=== PATIENT | male | born 1945 | race Caucasian/White ===

== ENCOUNTER 2024-12-04 00:18 | Inpatient (IN) | payer BC, OTHER ==
[2024-12-04 00:28] VITALS: BMI 28.5
[2024-12-04] MEDS ORDERED: SODIUM CHLORIDE 1,000 ML with POTASSIUM CHLORIDE 10 MEQ IV SCH (00:30)
[2024-12-04 01:20] LABS: MCHC 33.7 g/dl (32.3-36.5); MEAN CELL VOLUME 90.5 fl (79.0-92.2); MEAN PLT VOLUME 9.5 fl (9.4-12.4); RDW 12.9 % (12.2-16.6)
[2024-12-04 01:29] LABS: INR 1.47 (0.83-1.09); PROTHROMBIN TIME (PATIENT) 16.2 SEC (9.7-13.0)
[2024-12-04 01:32] LABS: ACTIVATED PTT 27.2 SECONDS (25.2-36.5)
[2024-12-04 01:37] LABS: GLUCOSE,RANDOM 152 mg/dL (74-106)
[2024-12-04] MEDS ORDERED: ACETAMINOPHEN INJECTION 100 ML ONE (01:37)
[2024-12-04 01:38] LABS: TOT PROT 6.8 g/dl (6.4-8.2)
[2024-12-04 01:39] LABS: CO2 28 mmol/L (21-32)
[2024-12-04 01:40] LABS: ALK PHOS 71 U/L (40-150)
[2024-12-04 01:43] LABS: CREATININE 0.98 mg/dL (0.55-1.3); SGOT/AST 74 U/L (5-34); SGPT/ALT 78 U/L (0-55)
[2024-12-04] MEDS: ACETAMINOPHEN 1000 MG/100 ML BAG IVPB ONE (01:43)
[2024-12-04] MEDS: LACTATED RINGERS SOLUTION 1000 ML INFUS.BAG IV ONE (01:43)
[2024-12-04] MEDS ORDERED: MAGNESIUM SULFATE IN WATER 2 GM/50 ML IVPB IVPB ONE (01:51)
[2024-12-04 02:04] LABS: HCV DIAGNOSTIC IN-HOUSE W/RFLX NON-REACTIVE (NONREACTIVE); HIV INTERPRETATION NEGATIVE (NEGATIVE)
[2024-12-04] MEDS: MAGNESIUM SULF 50% (8.12 MEQ/2 ML-1 GM VIAL) IVPB ONE (02:05)
[2024-12-04] MEDS ORDERED: POTASSIUM CHLORIDE ORAL LIQUID 20 MEQ/15 ML ONE ×2 (02:12→05:28)
[2024-12-04 02:16] LABS: BG HCT 48.0 % (35.4-49); VENOUS BASE EXCESS 5.1 mmol/L (-2-2); VENOUS O2 SATURATION 60.6 % (70-80); VENOUS PCO2 45.0 mmHg (38-52); VENOUS PH 7.443 (7.310-7.410)
[2024-12-04] MEDS: POTASSIUM CHLORIDE ORAL LIQUID 20 MEQ/15 ML PO ONE (02:21)
[2024-12-04] MEDS: KCL 10 MEQ IVPB 10 MEQ/100 ML INFUS.BAG IVPB SCH (03:01)
[2024-12-04] MEDS ORDERED: CEFTRIAXONE 1 GM/50 ML BAG ONE (03:23)
[2024-12-04] MEDS ORDERED: AZITHROMYCIN IVPB 500 MG/250 ML BAG IVPB ONE (03:23)
[2024-12-04] MEDS: CEFTRIAXONE 1 GM in DEXTROSE 5%-WATER - 100 ML IVPB ONE (03:25)
[2024-12-04] MEDS ORDERED: morphine CARPU-JECT 2 MG/1 ML DISP.SYRIN IVPUSH PRN (04:18)
[2024-12-04] MEDS: AZITHROMYCIN IVPB 500 MG in DEXTROSE 5%-WATER - 250 ML IVPB ONE (04:28)
[2024-12-04 04:58] LABS: URINE APPEARANCE CLEAR; URINE BILIRUBIN NEGATIVE (NEGATIVE); URINE COLOR YELLOW; URINE GLUCOSE (UA) NEGATIVE (NEGATIVE); URINE KETONE 15 mg/dl (NEGATIVE)
[2024-12-04 04:59] LABS: URINE LEUK ESTERASE 1+ (NEGATIVE); URINE NITRITE NEGATIVE (NEGATIVE); URINE PROTEIN 100 (NEGATIVE); URINE UROBILINOGEN 1.0 mg/dL (0.2-1.0)
[2024-12-04] MEDS: POTASSIUM CHLORIDE TABS 20 MEQ TABLET.ER (FP) PO ONE (05:45)
[2024-12-04] MEDS: SODIUM CHLORIDE 1,000 ML IV SCH (05:50)
[2024-12-04 07:00] LABS: GLUCOSE,RANDOM 174.0 mg/dL (74-106)
[2024-12-04 07:02] LABS: CO2 27.0 mmol/L (21-32)
[2024-12-04 07:46] LABS: CREATININE 0.85 mg/dL (0.55-1.3)
[2024-12-04 09:51] LABS: N-TERMINAL BNP 245.6 pg/mL (0-299.9)
[2024-12-04] MEDS ORDERED: CEFTRIAXONE 1 GM in DEXTROSE 5%-WATER - 50 ML IVPB SCH (10:00)
[2024-12-04] MEDS: LOSARTAN POTASSIUM 25 MG TABLET PO SCH (10:06)
[2024-12-04] MEDS: PIPERACILLIN/TAZOB 4.5 GM 4.5 GM in DEXTROSE 5%-WATER 100 ML IVPB SCH (10:06)
[2024-12-04] MEDS: POTASSIUM CHLORIDE TABS 10 MEQ TABLET.ER (FP) PO SCH (10:06)
[2024-12-04] MEDS: IBUPROFEN 800 MG/8 ML IJ IVPB PRN (11:04)
[2024-12-04] MEDS: POTASSIUM CHLORIDE 10 MEQ in SODIUM CHLORIDE 1,000 ML IV SCH (12:25)
[2024-12-04] MEDS: MEROPENEM 1 GM in DEXTROSE 5%-WATER 100 ML IVPB SCH (17:29)
[2024-12-04] MEDS ORDERED: POTASSIUM CHLORIDE 10 MEQ in SODIUM CHLORIDE 1,000 ML IV SCH (19:27)
[2024-12-04] MEDS ORDERED: PIPERACILLIN/TAZOB 4.5 GM 4.5 GM in DEXTROSE 5%-WATER 100 ML IVPB SCH (21:00)
[2024-12-04] MEDS: SODIUM CHLORIDE 250 ML IV STA (23:00)
[2024-12-05] MEDS: IBUPROFEN 800 MG/8 ML IJ IVPB SCH (01:25)
[2024-12-05 07:28] LABS: EOSINOPHIL % 0.1 % (0.8-7.0); EOSINOPHILS # 0.01 x10^3/uL (0.04-0.54); RDW 13.2 % (12.2-16.6)
[2024-12-05 07:30] LABS: ABSOLUTE IMMATURE GRANULOCYTES 0.04 x10^3/uL (0.0-0.031); BASOPHILS # 0.01 x10^3/uL (0.01-0.08); IMMATURE PLATELET FRACTION # 4.40 x10^3/uL; MCHC 33.3 g/dl (32.3-36.5); MEAN CELL VOLUME 89.9 fl (79.0-92.2); MEAN PLT VOLUME 10.0 fl (9.4-12.4); MONOCYTE # 0.38 x10^3/uL (0.30-0.82); MONOCYTE % 5.0 % (5.3-12.2)
[2024-12-05 08:02] LABS: GLUCOSE,RANDOM 98.0 mg/dL (74-106); TOT PROT 5.7 g/dl (6.4-8.2)
[2024-12-05 08:03] LABS: CO2 27.0 mmol/L (21-32)
[2024-12-05 08:05] LABS: ALK PHOS 74.0 U/L (40-150)
[2024-12-05 08:08] LABS: CREATININE 0.84 mg/dL (0.55-1.3); SGOT/AST 155.0 U/L (5-34); SGPT/ALT 159.0 U/L (0-55)
[2024-12-05 08:20] LABS: HEPATITIS B SURF AG NON-MATERN NON-REACTIVE (NONREACTIVE)
[2024-12-05] MEDS: POTASSIUM CHLORIDE TABS 20 MEQ TABLET.ER (FP) PO SCH (09:10)
[2024-12-05] MEDS: SODIUM CHLORIDE 1,000 ML IV SCH (09:11)
[2024-12-05] MEDS ORDERED: IBUPROFEN 800 MG/8 ML IJ IVPB PRN (19:32)
[2024-12-06] MEDS: KETOROLAC TROMETHAMINE 15 MG/ML VIAL IVPUSH ONE (03:43)
[2024-12-06 06:35] LABS: ABSOLUTE IMMATURE GRANULOCYTES 0.04 x10^3/uL (0.0-0.031); BASOPHILS # 0.02 x10^3/uL (0.01-0.08); EOSINOPHIL % 1.0 % (0.8-7.0); EOSINOPHILS # 0.08 x10^3/uL (0.04-0.54); MCHC 32.6 g/dl (32.3-36.5); MEAN CELL VOLUME 90.1 fl (79.0-92.2); MEAN PLT VOLUME 9.8 fl (9.4-12.4); MONOCYTE # 0.58 x10^3/uL (0.30-0.82); MONOCYTE % 7.0 % (5.3-12.2); RDW 13.1 % (12.2-16.6)
[2024-12-06 06:56] LABS: GLUCOSE,RANDOM 104.0 mg/dL (74-106)
[2024-12-06 06:57] LABS: CO2 29.0 mmol/L (21-32)
[2024-12-06] MEDS: morphine CARPU-JECT 2 MG/1 ML DISP.SYRIN IVPUSH ONE (06:57)
[2024-12-06 07:02] LABS: CREATININE 0.79 mg/dL (0.55-1.3)
[2024-12-06] MEDS: ACETAMINOPHEN 1000 MG/100 ML BAG IVPB ONE (07:53)
[2024-12-06 11:19] LABS: TOT PROT 6.1 g/dl (6.4-8.2)
[2024-12-06 11:21] LABS: ALK PHOS 107.0 U/L (40-150)
[2024-12-06 11:24] LABS: SGOT/AST 101.0 U/L (5-34); SGPT/ALT 150.0 U/L (0-55)
[2024-12-06] MEDS: POTASSIUM PHOSPHATE 30 MM in SODIUM CHLORIDE 500 ML IVPB ONE (12:20)
[2024-12-06] MEDS: MELATONIN 5 MG TABLETS PO PRN (21:33)
[2024-12-06] MEDS: HEPARIN NA (PORCINE) 5,000 UNITS/ML 1ML VIAL SQ SCH (21:46)
[2024-12-07 06:10] VITALS: RESP 18
[2024-12-07 06:40] LABS: ABSOLUTE IMMATURE GRANULOCYTES 0.03 x10^3/uL (0.0-0.031); BASOPHILS # 0.02 x10^3/uL (0.01-0.08); EOSINOPHIL % 0.9 % (0.8-7.0); EOSINOPHILS # 0.06 x10^3/uL (0.04-0.54); MCHC 34.0 g/dl (32.3-36.5); MEAN CELL VOLUME 89.2 fl (79.0-92.2); MEAN PLT VOLUME 9.9 fl (9.4-12.4); MONOCYTE # 0.48 x10^3/uL (0.30-0.82); MONOCYTE % 7.0 % (5.3-12.2); RDW 12.9 % (12.2-16.6)
[2024-12-07 07:02] LABS: GLUCOSE,RANDOM 103.0 mg/dL (74-106); TOT PROT 5.9 g/dl (6.4-8.2)
[2024-12-07 07:03] LABS: CO2 29.0 mmol/L (21-32)
[2024-12-07 07:05] LABS: ALK PHOS 105.0 U/L (40-150)
[2024-12-07 07:07] LABS: SGOT/AST 52.0 U/L (5-34); SGPT/ALT 103.0 U/L (0-55)
[2024-12-07 07:08] LABS: CREATININE 0.68 mg/dL (0.55-1.3)
[2024-12-07] MEDS: AMOX TR/POT CLAV 875MG/125MG TABLETS (FP) PO SCH (09:31)
[2024-12-07] MEDS: POTASSIUM CHLORIDE TABS 20 MEQ TABLET.ER (FP) PO ONE (09:31)
[2024-12-07] MEDS: NAPH,MB-DB/K PH,MBDB POWDER PACKET PO ONE (09:31)
[2024-12-07 11:20] VITALS: BP 155/84; PULSE 67; TEMP 97.5
== END 2024-12-07 13:06 | disposition home or self-care (01) | DRG 862 ==
LOC: JER 00:18 → JERBED 03:55 → J4W 07:22
PROVIDERS: ADMIT Hospitalist; ATTEND Internal Medicine
DX: T81.40XA Infection following a procedure, unspecified, initial encounter (principal); A41.9 Sepsis, unspecified organism; G93.41 Metabolic encephalopathy; E87.1 Hypo-osmolality and hyponatremia; N39.0 Urinary tract infection, site not specified; E87.6 Hypokalemia; Y83.8 Other surgical procedures as the cause of abnormal reaction of the patient, or of later complication, without mention of misadventure at the time of the procedure; N40.1 Benign prostatic hyperplasia with lower urinary tract symptoms; R33.9 Retention of urine, unspecified; E80.6 Other disorders of bilirubin metabolism
CPT/HCPCS: 36415; 71045-TC-FY; 80048; 80053; 80076; 81003; 82803; 82962; 83036; 83605; 83735; 83880; 84100; 84484; 85025; 85610; 85730; 86704; 86709; 86803; 86850; 86900; 86901; 87040; 87086; 87340; 87389; 87517; 87637-QW; 93005; 93010; 97116-GP; 97162-GP; 99285-25